=== PATIENT | male | born 1995 | race Caucasian/White ===

== ENCOUNTER 2017-03-25 12:15 | Emergency (ER) | payer OTHER ==
[2017-03-25 12:19] VITALS: BP 126/78; PULSE 70; TEMP 98; BMI 24.2
--- NOTE | 2017-03-25 13:20 | PDOC ---
History of Present Illness - General Chief Complaint: Injury Stated Complaint: ANKLE PAIN Time Seen by Provider: 03/25/17 13:07 History Source: Patient Exam Limitations: No Limitations - History of Present Illness Initial Comments: 03/25/17 13:15 21 yr male twisted left foot and ankle this AM while stepping off his truck at work. pt states he took motrin for pain this am. no medical history or allergies. no previous injury . Severity: Yes: mild Method of Injury: Yes: twisted Modifying Factors: improves with: None Lower Ext. Injury Location - Specific Injury Location Ankle: left no evidence of injury, left normal inspection, left normal range of motion, left pain Foot: left foot no evidence of injury, left foot normal inspection, left foot normal range of motion, left foot pain Past History - Past Medical History Allergies/Adverse Reactions: Allergies Allergy/AdvReac Type Severity Reaction Status Date / Time No Known Allergies Allergy Verified 03/25/17 12:19 Home Medications: Ambulatory Orders NK [No Known Home Medication] 03/25/17 Other medical history: denies - Psycho/Social/Smoking Cessation Hx Anxiety: No Suicidal Ideation: No Smoking History: Never smoked Have you smoked in the past 12 months: No Information on smoking cessation initiated: No Hx Alcohol Use: No Drug/Substance Use Hx: No Substance Use Type: None Review of Systems - Review of Systems Able to Perform ROS?: Yes Is the patient limited Yi proficient: No Constitutional: No: Symptoms Reported HEENTM: No: Symptoms Reported Respiratory: No: Symptoms reported ABD/GI: No: Symptoms Reported : No: Symptoms Reported Musculoskeletal: Yes: Symptoms Reported, See HPI Integumentary: No: Symptoms Reported Neurological: No: Symptoms reported *Physical Exam - Vital Signs Last Vital Signs Temp Pulse Resp BP Pulse Ox 98 F 70 18 126/78 98 03/25/17 12:17 03/25/17 12:17 03/25/17 12:17 03/25/17 12:17 03/25/17 12:17 - Physical Exam General Appearance: Yes: Nourished, Appropriately Dressed HEENT: positive: EOMI, MARLA Extremity: positive: Normal Capillary Refill, Normal Inspection, Normal Range of Motion, Tender (lateral malleolus ) Integumentary: positive: Normal Color, Dry, Warm Neurologic: positive: Fully Oriented, Alert, Normal Mood/Affect, Normal Response , Motor Strength 5/5 ED Treatment Course - RADIOLOGY Radiology Studies Ordered: Category Date Time Status ANKLE & FOOT-LEFT* [RAD] Stat Radiology 03/25/17 13:14 Ordered Medical Decision Making - Medical Decision Making 03/25/17 13:20 cc: left ankle injury at work this morning twisted stepping off the back of his truck at work pt is ambulatory no acute distress. no obvious trauma noted. 03/25/17 17:23 pt refused crutches xray is negative all results discussed amina wrap placed to ankle *DC/Admit/Observation/Transfer Diagnosis at time of Disposition: Ankle sprain Qualifiers: Encounter type: initial encounter Involved ligament of ankle: unspecified ligament Laterality: left Qualified Code(s): S93.402A - Sprain of unspecified ligament of left ankle, initial encounter - Discharge Dispostion Disposition: HOME Condition at time of disposition: Good - Referrals Referrals: Les Randolph MD [Staff Physician] - - Patient Instructions Additional Instructions: elevate and apply ice every 2hrs for 20 minutes for the next 2 days take motrin (advil, ibuprofen) for pain as directed follow with the orthopedist next week if pain worsens or persists
== END 2017-03-25 13:32 | disposition home or self-care (01) ==
LOC: JERFT 12:15
DX: S93.402A Sprain of unspecified ligament of left ankle, initial encounter (principal); X50.1XXA Overexertion from prolonged static or awkward postures, initial encounter; V68.4XXA Person boarding or alighting a heavy transport vehicle injured in noncollision transport accident, initial encounter; Y92.488 Other paved roadways as the place of occurrence of the external cause; Y99.0 Civilian activity done for income or pay; Y93.89 Activity, other specified
CPT/HCPCS: 73610-TC-LT; 73630-TC-LT; 99281-25